=== PATIENT | female | born 1975 | race Caucasian/White ===

== ENCOUNTER 2016-07-13 17:44 | Inpatient (IN) | payer BC ==
--- NOTE | 2016-07-09 22:54 | PREOPHP ---
DATE OF ADMISSION: 07/14/2016 HISTORY OF PRESENT ILLNESS: This is a 41-year-old female, who is coming for a surgical procedure on 07/14/2016. Falguni Mendenhall is 6, para 4, abortus 2, with previous tubal ligation. This veronica ent has been having issues with abnormal uterine bleeding. She has been diagnosed with fibroids, an d she has tried control pills. She had a previous tubal ligation and at the present time she is on control pills to try to control her bleeding, that has not subsided in spite of progeste zeeshan treatment and control pills. The patient had an ultrasound that revealed that she has a 2 cm anterior fundus fibroid in the endometrial canal with thickness of 1.3 cm and a follicular cyst on the left ovary of 2 cm. This patient has not been satisfied with control pills or progest erone treatment, for which she was advised for a hysteroscopy D and C to rule out malignancy, and at the same time to do an endometrial hydrothermal ablation to try to stop her bleeding, that has been off and on with severe hemorrhaging sometime and anemia. The patient states she needs to wear 2-3 pads at the same time for 1-2 days, and that puts her in a fatigues status, and she is on vitamins a nd iron, and she is looking for a solution. PAST MEDICAL HISTORY: She had an appendectomy. She had a tubal ligation. ALLERGIES: THE PATIENT IS NOT ALLERGIC TO ANY MEDICATIONS. MEDICATIONS: She is on: 1. Loestrin. 2. Vitamins. 3. Iron. FAMILY HISTORY: Also noncontributory. PHYSICAL EXAMINATION: VITAL SIGNS: Stable. She weighs 200 pounds and she is 4 feet 11 inches. The blood pressure is 100 /60, pulse is 80, respirations 16. HEAD AND NECK: Normal. CHEST: Clear. HEART: Normal sinus rhythm. LUNGS: Clear. BREASTS: Soft, nontender, no masses. ABDOMEN: Soft, nontender, no masses. PELVIC: With normal external genitalia. Cervix is healthy. Uterus retroverted, flexed, with fibro ids, painful on mobilization. Adnexa are negative. EXTREMITIES: Normal. DIAGNOSES: 1. Fibroid uterus; possible intracavitary fibroids, submucosal fibroids, endometrial hyperplasia. 2. Menometrorrhagia. 3. Anemia. 4. Previous tubal ligation. PLAN: She is undergoing a hysteroscopy D and C and endometrial ablation with HDA machine. She has been advised of the possible risks and possible complications of the procedure, with her alternative s and options with written information was provided. She had no more questions and agreed to go ahe ad with the procedure without any concerns and without questions. Dictated By: ISAAC ZHU/JOVANNI Conf#: [id number] DID#: [id number]
[~2016-07-13] VITALS: Ht 144.8 cm; Wt 89.2 kg
[2016-07-13 20:28] LABS: INR 0.97; PROTIME 12.9 Sec (12.2-14.2)
[2016-07-13 20:29] LABS: PARTIAL THROMBOPLASTIN TIME 25.7 Sec (25.0-35.0)
[2016-07-13] MEDS ORDERED: ACETAMINOPHEN 325 MG TAB PO PRN (20:30)
[2016-07-13] MEDS ORDERED: ONDANSETRON 4 MG INJ IV PRN (20:30)
[2016-07-13 20:34] LABS: ALBUMIN 4.3 g/dl (3.3-4.9); CHLORIDE 105 mmol/L (97-110); POTASSIUM 4.2 mmol/L (3.5-5.1); SODIUM 145 mmol/L (135-144)
[2016-07-13] MEDS ORDERED: SOD CHLORIDE 0.9% 250 ML IV ONE (20:34)
[2016-07-13 20:36] LABS: BILIRUBIN,INDIRECT 0.1 mg/dl (0-1.1); BILIRUBIN,TOTAL 0.1 mg/dl (0.2-1.3); CREATININE 0.55 mg/dl (0.44-1.00)
[2016-07-13 20:37] LABS: ALANINE AMINOTRANSFERASE 87 IU/L (13-69); ALBUMIN/GLOBULIN RATIO 1.07; ALKALINE PHOSPHATASE 111 IU/L (42-121); ANION GAP 21 (8-16); ASPARTATE AMINO TRANSFERASE 60 IU/L (15-46); BLOOD UREA NITROGEN 11 mg/dl (7-20); CARBON DIOXIDE 23 mmol/L (21-31); GLUCOSE 99 mg/dl (70-220); TOTAL PROTEIN 8.3 g/dl (6.1-8.1)
[2016-07-13 20:38] LABS: CALCIUM 9.4 mg/dl (8.4-10.2)
--- NOTE | 2016-07-13 20:41 | ERA ---
ER Documentation Chief Complaint Date/Time DATE: 07/13/16 TIME: 20:35 Chief Complaint SENT FOR LOW HEMOGLOBIN AND FEELING LIGHTHEADED. SOB WITH EXERTION HPI Patient is a 41-year-old female with anemia and fibroids who presents with anemia. The patient is a patient of Dr. Giordano and is planning to have a D&C with ablation performed tomorrow. The patient had a hemoglobin done on Monday which showed a hemoglobin of 6 and the patient was told to come to the ER if she started having any symptoms. Today she was feeling very dizzy and lightheaded. She is denying vaginal bleeding at this time. However she does have a history of fibroids and heavy bleeding. She tried oral contraceptive pills which did not help. Upon review of old medical records the patient one previous visit to the ER in 2006. ROS All systems reviewed and are negative except as per history of present illness. Medications Home Meds No Active Prescriptions or Reported Meds Allergies Allergies: Coded Allergies: No Known Allergy (Verified , 07/13/16) PMhx/Soc History of Surgery: No Anesthesia Reaction: No Hx Neurological Disorder: No Hx Respiratory Disorders: No Hx Cardiac Disorders: No Hx Psychiatric Problems: No Hx Miscellaneous Medical Probl: Yes (ANEMIA) Hx Alcohol Use: No Hx Substance Use: No Hx Tobacco Use: No Smoking Status: Never smoker FmHx Family History: No diabetes Physical Exam Vitals Vital Signs Date Time Temp Pulse Resp B/P Pulse Ox O2 Delivery O2 Flow Rate FiO2 07/13/16 17:55 91 22 134/73 100 Physical Exam Const: No acute distress Head: Atraumatic Eyes: Pale conjunctiva ENT: Normal External Ears, Nose and Mouth. Neck: Full range of motion..~ No meningismus. Resp: Clear to auscultation bilaterally Cardio: Regular rate and rhythm, no murmurs Abd: Soft, non tender, non distended. Normal bowel sounds Skin: Pale Back: No midline or flank tenderness Ext: No cyanosis, or edema Neur: Awake and alert Psych: Normal Mood and Affect Results 24 hrs Laboratory Tests Test 07/13/16 19:54 Activated Partial Thromboplast Time 25.7Sec INR International Normalized Ratio 0.97 Prothrombin Time 12.9Sec Prothrombin Time Ratio 1.0 Current Medications Medications (Trade) Dose Ordered Sig/[place] Route PRN Reason Start Time Stop Time Status Last Admin Dose Admin Ondansetron HCl (Zofran Inj) 4 mg BRIDGE ORDER PRN IV NAUSEA AND/OR VOMITING 07/13/16 20:30 07/14/16 20:29 Acetaminophen (Tylenol Tab) 650 mg ER BRIDGE PRN PO MILD PAIN/FEVER 07/13/16 20:30 07/14/16 20:29 Procedures/MDM EKG read by me: Rate/Rhythm: Regular rate and rhythm at a rate of 87 Intervals: Normal Impression: No evidence of ischemia or arrhythmia Patient is a 41-year-old female with anemia and fibroids who presents with symptomatic anemia. The patient will be given 2 units of packed red blood cells. Unfortunately our CBC machine is not working right now but her hemoglobin on Monday was 6 and she is symptomatic and therefore I will transfuse packed red blood cells. I spoke with Dr. Giordano her reo asset manager who will admit her to the hospital and perform the procedure that is planned for tomorrow. The patient will be admitted to a medical surgical bed in stable condition. I believe she is likely anemic from dysfunctional uterine bleeding and fibroids. Critical Care: Time: 35 minutes excluding all billable procedures. Treatments/Evaluations: Close monitoring and treatment of unstable vital signs, cardiorespiratory, and neurologic status, while maintaining tight balance of fluid, respiratory, and cardiac interventions. Departure Diagnosis: Primary Impression: Anemia Qualified Code: D64.9 - Anemia, unspecified type Additional Impression: Fibroids Qualified Code: D25.9 - Uterine leiomyoma, unspecified location Condition: ANDERSON Cardenas MD Jul 13, 2016 20:41
[2016-07-13 20:51] LABS: TROPONIN-I < 0.012 ng/ml (0.00-0.12)
[2016-07-13 21:57] VITALS: Ht 144.8 cm; Wt 89.2 kg
[2016-07-13 22:00] VITALS: BP 125/57; RESP 18
[2016-07-13] MEDS: DEXTROSE 5%-LR 1,000 ML IV SCH (22:30)
[2016-07-13] MEDS ORDERED: ZOLPIDEM 5 MG TAB PO PRN (22:30)
[2016-07-13 22:52] LABS: RED BLOOD COUNT 3.79 10^6/ul (4.20-5.40); UNCORRECTED WBC 11.6 10^3/ul (4.8-10.8); WHITE BLOOD COUNT 11.6 10^3/ul (4.8-10.8)
[2016-07-13 22:53] LABS: HEMATOCRIT 23.8 % (37.0-47.0); HEMOGLOBIN 6.2 g/dl (12.0-16.0); MEAN CORPUSCULAR HEMOGLOBIN 16.4 pg (29.0-33.0); MEAN CORPUSCULAR HGB CONC 26.1 g/dl (32.0-37.0); MEAN CORPUSCULAR VOLUME 62.8 fl (82.0-101.0); PLATELET COUNT 382 10^3/UL (140-440)
[2016-07-14] VITALS (10 sets, daily range): BP systolic 88–114; BP diastolic 49–72; PULSE 74–102; RESP 12–21
[2016-07-14] MEDS: IBUPROFEN 800 MG TAB PO PRN ×2 (01:05→14:56)
[2016-07-14] MEDS: DEXTROSE 5%-LR 1,000 ML IV SCH (05:36)
[2016-07-14] MEDS ORDERED: PROPOFOL 20 ML ONE (08:17)
[2016-07-14] MEDS ORDERED: LIDOCAINE 2% (SDV) 5 ML INJ ONE (08:17)
[2016-07-14] MEDS ORDERED: FENTAnyl 50 MCG/ML VIAL ONE (08:18)
[2016-07-14] MEDS ORDERED: CEFAZOLIN 1 GM INJ ONE (08:18)
[2016-07-14] MEDS ORDERED: MIDAZOLAM 1 MG/ML 2 ML INJ ONE (08:18)
[2016-07-14 08:57] LABS: BASOPHIL # 0.1 10^3/ul (0.0-0.1); BASOPHILS % 0.7 % (0.0-2.0); EOSINOPHILS # 0.2 10^3/ul (0.0-0.5); EOSINOPHILS % 2.3 % (0.0-7.0); HEMATOCRIT 27.6 % (37.0-47.0); HEMOGLOBIN 8.5 g/dl (12.0-16.0); LYMPHOCYTES # 2.3 10^3/ul (0.8-2.9); LYMPHOCYTES % 23.6 % (15.0-51.0); MEAN CORPUSCULAR HEMOGLOBIN 19.5 pg (29.0-33.0); MEAN CORPUSCULAR HGB CONC 30.6 g/dl (32.0-37.0); MEAN CORPUSCULAR VOLUME 63.5 fl (82.0-101.0); MEAN PLATELET VOLUME 8.2 fl (7.4-10.4); MONOCYTE # 0.9 10^3/ul (0.3-0.9); MONOCYTES % 9.4 % (0.0-11.0); NEUTROPHIL # 6.3 10^3/ul (1.6-7.5); PLATELET COUNT 257 10^3/UL (140-440); RED BLOOD COUNT 4.35 10^6/ul (4.20-5.40); RED CELL DISTRIBUTION WIDTH 26.5 % (11.5-14.5); UNCORRECTED WBC 9.8 10^3/ul (4.8-10.8); WHITE BLOOD COUNT 9.8 10^3/ul (4.8-10.8)
[2016-07-14 09:00] LABS: CONDITION 1; LH ANALYZER COMMENTS 1; SUSPECT 1
[2016-07-14] MEDS ORDERED: MEPERIDINE 25 MG INJ IV PRN (09:30)
[2016-07-14] MEDS ORDERED: DIPHENHYDRAMINE 50 MG INJ IV PRN (09:30)
[2016-07-14] MEDS ORDERED: FENTAnyl 50 MCG/ML VIAL IV PRN (09:30)
[2016-07-14] MEDS ORDERED: KETOROLAC 30 MG INJ IV ONE (09:30)
[2016-07-14] MEDS ORDERED: HYDROmorphONE (0.2 MG/ML) 10ML SYG IV PRN ×2 (09:30)
[2016-07-14] MEDS ORDERED: METOCLOPRAMIDE 10 MG INJ IV PRN (09:30)
[2016-07-14] MEDS ORDERED: PROCHLORPERAZINE 10 MG INJ IV PRN (09:30)
[2016-07-14] MEDS ORDERED: ONDANSETRON 4 MG INJ IV PRN (09:30)
--- NOTE | 2016-07-14 09:53 | HPN ---
Date/Time of Note Date/Time of Note DATE: 07/14/16 TIME: 09:53 Interval H&P Admission Note Pt. seen H&P reviewed: No system changes ISAAC HEARD MD Jul 14, 2016 09:53
[2016-07-14] MEDS ORDERED: ONDANSETRON 4 MG INJ ONE (10:10)
[2016-07-14] MEDS ORDERED: DEXAMETHASONE 4 MG/ML 1 ML INJ ONE (10:10)
[2016-07-14] MEDS ORDERED: HYDROmorphONE 2 MG/ML SYG ONE (10:30)
[2016-07-14] MEDS ORDERED: OXYCODONE/ACETAMINOPHEN (5/325) TAB PO PRN ×2 (10:30)
[2016-07-14] MEDS ORDERED: KETOROLAC 30 MG INJ ONE (10:51)
--- NOTE | 2016-07-14 11:00 | PD.PPDC ---
DIRECTOR CARDIAC Discharge Instruction Condition Patient Condition: Good Activity/Restrictions Activity: Normal Activity May Shower Restrictions: No Exercising No Lifting No Driving No Sexual Activity Nothing in the Vagina No [place] No Tampons, douche Follow-up Follow-up with Physician: 2, Week/Weeks Return to clinic for LEAD TRAINER Instructions: Fever greater than 101 Chills Worsening abdominal pain Excessive Vaginal Bleeding More than 2 pads per hour Unable to tolerate diet ISAAC HEARD MD Jul 14, 2016 11:00
--- NOTE | 2016-07-14 11:08 | OPPN ---
Date/Time of Note Date/Time of Note DATE: 07/14/16 TIME: 11:05 Operative/Procedure Note Pre-Operative Diagnosis intractable menometrorrhagia fibroid uterus severe anemia morbid obesity Post-Operative Diagnosis same Procedure FRACTIONAL D&C HYSTEROSCOPY AND ENDOMETRIAL ABLATION HTA MACHINE Surgeon: ISAAC HEARD MD Anesthesiologist: MARYANNE JOY MD Implants/Grafts: Not applicable Estimated blood loss: minimal Specimens: Not Applicable Complications: None Anesthesia type: general ISAAC HEARD MD Jul 14, 2016 11:08
--- NOTE | 2016-07-14 12:20 | DS ---
Date/Time of Note Date/Time of Note DATE: 07/14/16 TIME: 12:12 Discharge Summary Admission/Discharge Info Admit Date/Time Jul 13, 2016 at 21:25 Discharge Date/Time Final Diagnosis INTRACTABLE MENOMETRORRHAGIA FIBROID UTERUS SEVERE ANEMIA Patient Condition: Good Procedures BLOOD TRANSFUSION FX D&C HTA ABLATION Hx of Present Illness 41 YEARS OLD MORBID OBESE FEMALE HISTORY OF FIBROIDS AND HEAVY PERIODS LEADING HER TO ANEMIA FEELING DIZZY CAME TO ER D&C WAS SCHEDULE WITH ENDOMETRIAL ABLATION DONE WITHOUT COMPLICATIONS DC HOME TO BE FU IN OFFICE Hospital Course UNEVENTFUL HAD TRANSFUSION AND PROCEDURE TO REDUCE BLEEDING Home Meds No Active Prescriptions or Reported Meds Follow-up Plan 1 WEEK Pending Labs Laboratory Tests Test 07/13/16 19:54 07/14/16 08:41 Activated Partial Thromboplast Time 25.7Sec (25.0-35.0) Alanine Aminotransferase (ALT/SGPT) 87IU/L (13-69) Albumin 4.3g/dl (3.3-4.9) Albumin/Globulin Ratio 1.07 Alkaline Phosphatase 111IU/L (42-121) Anion Gap 21 (8-16) Aspartate Amino Transf (AST/SGOT) 60IU/L (15-46) Blood Urea Nitrogen 11mg/dl (7-20) Calcium Level 9.4mg/dl (8.4-10.2) Carbon Dioxide Level 23mmol/L (21-31) Chloride Level 105mmol/L (97-110) Creatinine 0.55mg/dl (0.44-1.00) Direct Bilirubin 0.00mg/dl (0.00-0.20) Globulin 4.00g/dl (1.3-3.2) Glucose Level 99mg/dl (70-220) Hematocrit 23.8% (37.0-47.0) 27.6% (37.0-47.0) Hemoglobin 6.2g/dl (12.0-16.0) 8.5g/dl (12.0-16.0) INR International Normalized Ratio 0.97 Indirect Bilirubin 0.1mg/dl (0-1.1) Mean Corpuscular Hemoglobin 16.4pg (29.0-33.0) 19.5pg (29.0-33.0) Mean Corpuscular Hemoglobin Concent 26.1g/dl (32.0-37.0) 30.6g/dl (32.0-37.0) Mean Corpuscular Volume 62.8fl (82.0-101.0) 63.5fl (82.0-101.0) Mean Platelet Volume fl (7.4-10.4) 8.2fl (7.4-10.4) Platelet Count 01313^3/UL (140-440) 26750^3/UL (140-440) Potassium Level 4.2mmol/L (3.5-5.1) Prothrombin Time 12.9Sec (12.2-14.2) Prothrombin Time Ratio 1.0 Red Blood Count 3.7910^6/ul (4.20-5.40) 4.3510^6/ul (4.20-5.40) Red Cell Distribution Width % (11.5-14.5) 26.5% (11.5-14.5) Sodium Level 145mmol/L (135-144) Total Bilirubin 0.1mg/dl (0.2-1.3) Total Protein 8.3g/dl (6.1-8.1) Troponin I < 0.012ng/ml (0.00-0.12) White Blood Count 11.610^3/ul (4.8-10.8) 9.810^3/ul (4.8-10.8) Basophils # 0.110^3/ul (0.0-0.1) Basophils % 0.7% (0.0-2.0) Blood Morphology Comment Eosinophils # 0.210^3/ul (0.0-0.5) Eosinophils % 2.3% (0.0-7.0) Lymphocytes # 2.310^3/ul (0.8-2.9) Lymphocytes % 23.6% (15.0-51.0) Monocytes # 0.910^3/ul (0.3-0.9) Monocytes % 9.4% (0.0-11.0) Neutrophils # 6.310^3/ul (1.6-7.5) Neutrophils % 64.0% (39.0-77.0) Nucleated Red Blood Cells # 0.010^3/ul (0.0-0.0) Nucleated Red Blood Cells % 0.0/100WBC (0.0-0.0) ISAAC HEARD MD Jul 14, 2016 12:20
--- NOTE | 2016-07-14 13:52 | OPR ---
DATE OF OPERATION: 07/14/2016 PROCEDURE: Fractional D and C, hysteroscopy, and endometrial hydrothermal ablation. PREOPERATIVE DIAGNOSES: 1. Intractable menometrorrhagia. 2. Fibroid uterus. 3. Severe anemia. 4. Morbid obesity. POSTOPERATIVE DIAGNOSES: 1. Intractable menometrorrhagia. 2. Fibroid uterus. 3. Severe anemia. 4. Morbid obesity. SURGEON: Dr. Giordano ANESTHESIOLOGIST: Dr. Dejesus ANESTHESIA: General. PROCEDURE: The patient was given general anesthesia, placed in the lithotomy position. The perinea l and vaginal area were prepped and draped. Examination under anesthesia revealed that the uterus w as enlarged up about 12 weeks' size and there was no active bleeding at this time. The uterus appea red to be hypertrophic and no adnexal mass was palpated. The vaginal speculum was applied. The cer vix was held and endocervical curettage was done. The uterus was sounded to 12 cm and lightly dilat ed, and with the serrated curettage the cavity was scraped obtaining some tissue for histopathology. We scraped the anterior wall of the uterus, the lateral wall and the posterior wall and fundus. S isaiah tissue was obtained. The hysteroscope machine with the hydrothermal ablation was inserted thr ough the cervix and a ring forceps was placed around the cervix for sealing the cavity. The cavity appears smooth with no tremors, no polyps, no fibroids. The ablation machine was started and 10 min utes of circulation of the fluid media was done to the cavity of the uterus at 90 degrees Celsius. The procedure was finished and the additional hysteroscopy was done obtaining a good change in color of the salmon of the endometrial lining. The procedure was finished by removing all the instruments. The patient tolerated the procedure wel l and left the OR awake and stable. Sponge counts and instrument counts were correct and intravenou s antibiotics were given for prophylaxis. Dictated By: ISAAC ZHU/JOVANNI Conf#: [id number] DID#: [id number]
[2016-07-14] MEDS ORDERED: DIPHENHYDRAMINE 50 MG CAP PO ONE (14:30)
== END 2016-07-14 17:35 | disposition home or self-care (01) | DRG 742 ==
LOC: E/R 17:44 → MS2 21:25
PROVIDERS: ADMIT Obstetrics & Gynecology; ATTEND Obstetrics & Gynecology
PROC: 30233N1 Transfusion of Nonautologous Red Blood Cells into Peripheral Vein, Percutaneous Approach (ICD-10-PCS; 2016-07-13)
PROC: 0U5B4ZZ Destruction of Endometrium, Percutaneous Endoscopic Approach (ICD-10-PCS; 2016-07-14)
PROC: 0UDB7ZZ Extraction of Endometrium, Via Natural or Artificial Opening (ICD-10-PCS; principal; 2016-07-14 09:30)
DX: D25.0 Submucous leiomyoma of uterus (principal); Z68.41 Body mass index [BMI] 40.0-44.9, adult; N85.00 Endometrial hyperplasia, unspecified; Z98.51 Tubal ligation status; E66.01 Morbid (severe) obesity due to excess calories; N92.1 Excessive and frequent menstruation with irregular cycle; D50.0 Iron deficiency anemia secondary to blood loss (chronic)
CPT/HCPCS: 36415; 36430; 80053; 84484; 85025; 85610; 85730; 86850; 86900; 86901; 86920; 88305; 93005; J0690; J1100; J1170; J1200; J1885; J2175; J2250; J2405; J3010; J7040; J7121; P9016